=== PATIENT | female | born 1930 | race Caucasian/White ===

== ENCOUNTER 2016-07-16 11:23 | Emergency (ER) | payer MEDICARE, BC ==
[~2016-07-16] VITALS: Ht 166.4 cm; Wt 62.0 kg
[2016-07-16 11:33] VITALS: BP 158/75; PULSE 91; RESP 20; TEMP 98.3; O2SAT 98
[2016-07-16] MEDS ORDERED: AMLO10TA2 PO (11:39)
[2016-07-16] MEDS ORDERED: PRAV20TA PO (11:39)
[2016-07-16] MEDS ORDERED: HYDROmorphone HCL PF 1 MG/ML VIAL IV PUSH ONE (11:45)
[2016-07-16] MEDS ORDERED: ONDANSETRON HCL 4 MG/2 ML VIAL IV PUSH ONE (11:45)
--- NOTE | 2016-07-16 11:58 | PD ---
HPI Chief Complaint: Hip Injury Time Seen by Provider: 11:35 Travel History International Travel<30 days: No Contact w/Intl Traveler<30days: No Traveled to known affect area: No History of Present Illness HPI 86 year-old woman presents emergent [place] of left hip pain. She is walking out of elevator and she states she cannot stool and twisted and felt like her left hip popped out of place. She was able to move afterwards but did not collapse to the ground. She stated there holding onto the wall until EMS got there. 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 States she feels like it is dislocated. History Past Medical History Narrative Medical Hypertension on hyperlipidemia Bilateral hip replacements Tetanus Vaccination: > 5 Years Influenza Vaccination: Yes : 7 Para: 5 Social History Alcohol Use: Yes (1 BEER DAILY) Tobacco Use: No Allergies-Medications (Allergen,Severity, Reaction): Coded Allergies: Sulfa (Verified Allergy, Unknown, 07/16/16) Morphine (Verified Adverse Reaction, Severe, Nausea/Vomiting, 07/16/16) Reported Meds & Prescriptions Reported Meds & Active Scripts Active Reported Pravachol (Pravastatin) 20 Mg Tab 10 Mg PO DAILY Amlodipine (Amlodipine Besylate) 10 Mg Tab 10 Mg PO DAILY Review of Systems Except as stated in HPI: all other systems reviewed are Neg Physical Exam Narrative GENERAL: Well-appearing 86 year-old woman, no acute distress. SKIN: Warm and dry. CARDIOVASCULAR: Warm and well perfused. RESPIRATORY: Normal rate and effort. MUSCULOSKELETAL: Patient with the pain with any range of motion of the left hip. The left lower extremity is normal in appearance. Maybe a little bit shortened compared to the right. Holds it in extension with a slight degree of external rotation. NEUROLOGICAL: Awake and alert. No gross deficits. Data Data Last Documented VS Vital Signs Date Time Temp Pulse Resp B/P Pulse Ox O2 Delivery O2 Flow Rate FiO2 07/16/16 11:33 98.3 91 20 158/75 98 Orders Hip, Uni(Ap&Lat) W Ap Pelvis (07/16/16 ) Hydromorphone Pf Inj (Dilaudid Pf Inj) (07/16/16 11:45) Ondansetron Inj (Zofran Inj) (07/16/16 11:45) Iv Access Insert/Monitor (07/16/16 11:41) Propofol 200 Mg/20 Ml Inj (Diprivan 200 (07/16/16 12:30) Hip, Ap Only Wo Ap Pelvis (07/16/16 ) Immobilizer Knee 20 Inch (07/16/16 ) [facility] Medical Decision Making Medical Screen Exam Complete: Yes Emergency Medical Condition: Yes Interpretation(s) X-ray left hip: Dislocation of the left femoral head component of the acetabular cup. Repeat: Successful reduction. Differential Diagnosis Dislocation, fracture, strain or sprain, other Narrative Course Medical decision making INITIAL: 86 year-old woman, no acute distress. Probable left hip dislocation. X-rays pending. Procedures Procedure Narrative After the risks and benefits were discussed the following procedure was performed: MODERATE SEDATION: The patient was placed on a school lunch monitor and pulse oximetry. An ambu bag and suction was immediately available at bedside. The patient was monitored by the nurse. Oxygen saturation, heart rate and blood pressure were monitored. Procedural sedation was acheived using propofol, 140 mg. The patient was observed until awake and alert. Procedural Sedation time in attendance was 20 minutes. Left hip reduction: Following informed consent, timeout, procedural sedation, the left hip was reduced using a combination of Capt. Potter technique and axial traction. The reduction was difficult. Dr. Thompson did come and assist with the reduction. Repeat x-ray shows successful reduction. Diagnosis Primary Impression: Hip dislocation, left Qualified Code: S73.005A - Hip dislocation, left, initial encounter Additional Instructions: Wear knee immobilizer for one week at all times except when showering. Follow-up with your orthopedic doctor since he returned home. Return to the emergency department for any new or worsening symptoms. Med/Other Pt SpecificInfo: Prescription(s) given Scripts Hydrocodone-Acetaminophen (Lortab)5-325 Mg Tab1-2 Tab PO Q6H PRN (PAIN) #12 TAB Prov:Hiram Luis MD 07/16/16 Disposition: 01 DISCHARGE HOME Condition: Stable Hiram Luis MD Jul 16, 2016 11:58
[2016-07-16] MEDS ORDERED: PROPOFOL 200 MG/20 ML AMP IV ONE (12:30)
[2016-07-16 12:34] VITALS: RESP 20
--- NOTE | 2016-07-16 13:02 | RADRPT ---
EXAM DATE/TIME: 07/16/2016 12:08 [facility] COMPARISON: No previous studies available for comparison. INDICATIONS : Evaluate for Left Hip dislocation after twisting injury. MEDICAL HISTORY : Left Hip Dislocation. SURGICAL HISTORY : Bilateral Hip Surgery. ENCOUNTER: Initial ACUITY: 1 day PAIN SCORE: 10/10 LOCATION: Left Hip. FINDINGS: AP view of the pelvis with 2 views of the left hip demonstrate superior and anterior dislocation of t he left femoral head component of the acetabular cup. A right total hip arthroplasty hardware demonst rates no abnormality. There is an ovoid calcification overlying the pelvis. Bowel staple line and althea gical clips overlie the pelvis. There is degenerative disc disease in the visualized inferior lumbar spine. CONCLUSION: Dislocation of the left femoral head component out of the acetabular cup. Delnao Cash MD on July 16, 2016 at 12:59 Board Certified Radiologist. This report was verified electronically.
[2016-07-16] MEDS ORDERED: HYDR-3533 PO (13:21)
[2016-07-16 13:35] VITALS: O2SAT 97
--- NOTE | 2016-07-16 14:08 | RADRPT ---
EXAM DATE/TIME: 07/16/2016 12:59 [facility] COMPARISON: HIP LEFT (AP&LAT 2/3VWS) W AP PELVIS, July 16, 2016, 12:08. INDICATIONS : Status post reduction left hip. MEDICAL HISTORY : None. SURGICAL HISTORY : None. ENCOUNTER: Subsequent ACUITY: 1 day PAIN SCORE: 0/10 LOCATION: Left Hip FINDINGS: AP view of the left hip demonstrates normal relationship between the femoral head component and aceta bular cup on this AP view. CONCLUSION: There are no findings seems to indicate dislocation on this single view. Delano Cash MD on July 16, 2016 at 14:06 Board Certified Radiologist. This report was verified electronically.
== END 2016-07-16 14:09 | disposition home or self-care (01) ==
LOC: NEPE 11:23
DX: S73.005A Unspecified dislocation of left hip, initial encounter (principal); E78.5 Hyperlipidemia, unspecified; I10 Essential (primary) hypertension; X50.1XXA Overexertion from prolonged static or awkward postures, initial encounter; Y93.01 Activity, walking, marching and hiking
CPT/HCPCS: 27265; 73501; 73502; 96374; 96375; 99152; 99283; J1170; J2405; L1830

== ENCOUNTER 2016-07-21 06:29 | Emergency (ER) | payer MEDICARE, BC ==
[~2016-07-21] VITALS: Ht 162.6 cm; Wt 60.0 kg
[~2016-07-21 06:29] MED LIST: AMLO10TA2 PO; HYDR-3533 PO; PRAV20TA PO
[2016-07-21 06:33] VITALS: BP 193/80; PULSE 86; RESP 18; TEMP 97.9; O2SAT 98
--- NOTE | 2016-07-21 06:45 | PD ---
HPI Chief Complaint: Pain: Acute or Chronic Time Seen by Provider: 06:33 Travel History International Travel<30 days: No Contact w/Intl Traveler<30days: No Traveled to known affect area: No History of Present Illness HPI 86 year-old woman with a history of bilateral hip replacements presents to the emergency department complaining of left hip pain. She was recently seen in the emergency department with a left hip dislocation after she twisted her leg while walking out of an elevator. This was reduced in the ED by myself. She states she did well following this, approximately 5 days ago, but over the past day or 2 is develop worsening pain in the left hip, especially with movement and standing. No numbness tingling or weakness. No other complaints. History Past Medical History Narrative Medical Hypertension Hyperlipidemia Hip replacements : 7 Para: 5 Social History Alcohol Use: Yes (1 BEER DAILY) Tobacco Use: No Allergies-Medications (Allergen,Severity, Reaction): Coded Allergies: Sulfa (Verified Allergy, Unknown, 07/16/16) Morphine (Verified Adverse Reaction, Severe, Nausea/Vomiting, 07/16/16) Reported Meds & Prescriptions Reported Meds & Active Scripts Active Lortab (Hydrocodone-Acetaminophen) 5-325 Mg Tab 1-2 Tab PO Q6H PRN Reported Pravachol (Pravastatin) 20 Mg Tab 10 Mg PO DAILY Amlodipine (Amlodipine Besylate) 10 Mg Tab 10 Mg PO DAILY Review of Systems Except as stated in HPI: all other systems reviewed are Neg Physical Exam Narrative GENERAL: Well-appearing 86 year-old woman, no acute distress. SKIN: Warm and dry. CARDIOVASCULAR: Warm and well perfused. RESPIRATORY: Normal rate and effort. MUSCULOSKELETAL: Focused examination of the left lower extremity reveals normal gross appearance of the left leg. Symmetric length. No abnormal position. Left ankle and left knee are unremarkable. She has pain with active range of motion of the left hip. NEUROLOGICAL: Awake and alert. No gross deficits. Data Data Last Documented VS Vital Signs Date Time Temp Pulse Resp B/P Pulse Ox O2 Delivery O2 Flow Rate FiO2 07/21/16 06:33 97.9 86 18 193/80 98 Orders Hip, Uni(Ap&Lat) W Ap Pelvis (07/21/16 ) MDM Medical Decision Making Medical Screen Exam Complete: Yes Emergency Medical Condition: Yes Differential Diagnosis Hip effusion, hemarthrosis, soft tissue injury, labral injury, other Narrative Course Medical decision making INITIAL: 86 year-old woman presents to the emergency department complaining of left hip pain, 5 days status post dislocation and reduction. Looks well. Neurovascularly intact. Pain with range of motion suggesting intra-articular pathology. We'll check x-ray. Pain control. Hriam Luis MD Jul 21, 2016 06:45
[2016-07-21] MEDS ORDERED: ACETAMINOPHEN/HYDROcodone 325 MG/5 MG TAB PO ONE (07:00)
--- NOTE | 2016-07-21 07:04 | PD ---
Physical Exam Date Seen by Provider: Jul 21, 2016 Time Seen by Provider: 07:02 Narrative The patient is a 86-year-old female was initially evaluated by the previous physician, Dr. Luis. Please refer to the initial history, physical, diagnostic evaluation, and treatment modality plan. The patient was signed out at 7 AM with x-ray of the left hip pending. The patient did have a dislocated left hip last week which was reduced and the patient was placed in a knee immobilizer. The patient's x-rays pain over the lateral aspect of the hip, may be secondary to wearing the knee immobilizer muscle strain versus hematoma within the capsule. The patient does have a follow-up appointment with an orthopedic surgeon next week, Dr. Clark. Data Data Last Documented VS Vital Signs Date Time Temp Pulse Resp B/P Pulse Ox O2 Delivery O2 Flow Rate FiO2 07/21/16 06:33 97.9 86 18 193/80 98 Orders Hip, Uni(Ap&Lat) W Ap Pelvis (07/21/16 ) Acetamin-Hydrocod 325-5 Mg ([place] 5-325 (07/21/16 07:00) Ondansetron Odt (Zofran Odt) (07/21/16 07:30) MDM Medical Record Reviewed: Yes Supervised Visit with ADRIAN: No Interpretation(s) X-ray reveals no obvious fracture or dislocation Last Impressions Hip and Pelvis X-Ray 07/21/16 0000 Signed Impressions: Service Date/Time: June 07:10 - CONCLUSION: No acute pelvis or left hip abnormality is identified. The bones are undermineralized. Delano Cash MD Differential Diagnosis Differential diagnosis includes fracture, dislocated hip, hematoma, possible strain. Narrative Course Patient was initially evaluated by the previous physician, please refer to the initial history, physical, diagnostic evaluation, and treatment modality plan. The patient was signed out at 7 AM with x-ray pending. Dr. Luis did recommend the patient not use in a knee immobilizer as it may be contributing to a muscle strain on the lateral aspect of the hip from walking with a knee immobilizer in place. The patient is also advised to keep her appointment with her orthopedic surgeon next week, Dr. Clark. The patient was able to ambulate with assistance , x-ray reveals no acute fracture or dislocation. The patient will be discharged home on Motrin, [place], and Zofran. She is advised to return if symptoms worsen or progress. Diagnosis Primary Impression: Left hip pain Patient Instructions: General Instructions, Moderate Sedation in Children (ED) Additional Instruction: Follow-up with your orthopedic surgeon as scheduled next week. Discontinue knee immobilizer per Dr. Luis's instructions. Pain medications as directed. Activity as tolerated. Please provide the patient a copy of her x-ray report at discharge. Med/Other Pt SpecificInfo: Prescription(s) given Scripts Ibuprofen 400 Mg [id number] Mg PO Q6H PRN (PAIN SCALE 1 TO 10) #20 TAB Ref 0 Prov:Quinn Franco MD 07/21/16 Ondansetron Odt (Zofran Odt)4 Mg Tab4 Mg SL Q6HR PRN (Nausea/Vomiting) #7 TAB Ref 0 Prov:Quinn Franco MD 07/21/16 Hydrocodone-Acetaminophen ([place])5-325 mg Tab1 Tab PO Q6H PRN (PAIN) #15 TAB Ref 0 Prov:Quinn Franco MD 07/21/16 Disposition: 01 DISCHARGE HOME Condition: Stable Quinn Franco MD Jul 21, 2016 07:04
[2016-07-21] MEDS ORDERED: ONDANSETRON ODT 4 MG TAB PO ONE (07:30)
[2016-07-21] MEDS ORDERED: IBUP400T20 PO (07:59)
[2016-07-21] MEDS ORDERED: ZOFR4TAB3 SL (07:59)
[2016-07-21] MEDS ORDERED: NORC5TAB PO (07:59)
--- NOTE | 2016-07-21 08:27 | RADRPT ---
EXAM DATE/TIME: 07/21/2016 07:10 [facility] COMPARISON: HIP LEFT (AP&LAT 2/3VWS) W AP PELVIS, July 16, 2016, 12:08. INDICATIONS : Left hip pain. MEDICAL HISTORY : None. SURGICAL HISTORY : Bilateral total hip replacements ENCOUNTER: Initial ACUITY: 1 day PAIN SCORE: 7/10 LOCATION: Left hip FINDINGS: AP view of the pelvis with 2 views of the left hip demonstrates undermineralized bones without a frac ture or dislocation identified. There is bilateral hip hardware related to total hip arthroplasty. Th ere are no findings to indicate hardware failure or loosening. Bowel staple line and clips overlie th e pelvis. There is degenerative disc disease in the inferior 3 lumbar levels visualized. No acute sof t tissue abnormality is identified.CONCLUSION: No acute pelvis or left hip abnormality is identified. The bones are undermineralized. Delano Cash MD on July 21, 2016 at 8:24 Board Certified Radiologist. This report was verified electronically.
== END 2016-07-21 09:03 | disposition home or self-care (01) ==
LOC: NEPE 06:29
DX: M25.552 Pain in left hip (principal); Z87.828 Personal history of other (healed) physical injury and trauma; I10 Essential (primary) hypertension; E78.5 Hyperlipidemia, unspecified
CPT/HCPCS: 73502; 99283